=== PATIENT | male | born 1950 | race Caucasian/White ===

== ENCOUNTER → 2017-11-10 | Outpatient (CLI) | payer OTHER ==
[~2017-11-10] MED LIST: ACCUPRIL40 MG PO; NORVASC 5 MG TAB5 MG PO
--- NOTE | ~2017-11-10 | EKG ---
[place] [address] [facility] [place] [address] ELECTROCARDIOGRAM REPORT Name: EVARISTO HEARN Room #: [facility]LESIsmael#: [id number] Admission: 11/10/17 Attend Phys: Reema Rivera MD Discharge: Date of : 52 Report #: [id number] THIS REPORT FOR: //name// [facility] Test Date: 2017-11-10 Test Time: 10:31:25 Pat Name: EVARISTO HEARN Department: Room: Gender: M [employer]dnance Officer: DESHAUN : 1950 Requested By: Reema Rivera Order Number: [id number] MD: Yeyo Parisi Measurements Intervals [place] Rate: 79 P: 21 [place]: 186 QRS: -7 QRSD: 96 T: 39 QT: 371 QTc: 426 Interpretive Statements Sinus rhythm No significant abnormality No previous ECG available for comparison Electronically Signed On 11-11-2017 9:19:52 [employer] by Yeyo Parisi [email or web address] <ELECTRONICALLY SIGNED> By: Yeyo Parisi MD, [facility] 11/11/17 0919 1031 1031 Yeyo Parisi MD, FACC /EPI
== END | disposition home or self-care (01) ==
LOC: LITH 10:08
DX: N20.0 Calculus of kidney (principal)